=== PATIENT | male | born 1995 | race Caucasian/White ===

== ENCOUNTER 2018-08-04 16:31 | Emergency (ER) | payer BC ==
[2018-08-04 16:39] VITALS: BMI 24.7
[2018-08-04 16:44] VITALS: TEMP 98.8
--- NOTE | 2018-08-04 17:03 | C.PDOC ---
History Of Present Illness <Jen Kothari P - Last Filed: 08/04/18 19:31> <Cory Patel - Last Filed: 08/05/18 00:08> PGY-[address] Patel. 22 year old male with no PMHx presents complaining of left low back pain. Patient states pain began 2 days ago after a gym work out and severely worsened upon awakening today after sleeping on the couch. Pain worsens with movement. Treatment with bengay, cold showers, esteban wrap and epsom salt bath provided no improvement. Patient denies trauma, fever, chills, and urinary symptoms. ( Jen Kothari P) <Jen Kothari - Last Filed: 08/04/18 19:31> <Cory Patel - Last Filed: 08/05/18 00:08> Time Seen by Provider: 08/04/18 16:46 Chief Complaint (Nursing): Back Pain Past Medical History Family History: States: Unknown Family Hx <Jen Kothari - Last Filed: 08/04/18 19:31> - Social History Hx Tobacco Use: No Hx Alcohol Use: No Hx Substance Use: No - Immunization History Hx Tetanus Toxoid Vaccination: No Hx Influenza Vaccination: Yes Hx Pneumococcal Vaccination: No <Cory Patel - Last Filed: 08/05/18 00:08> Vital Signs: Last Vital Signs Temp 98.8 F 08/04/18 16:40 Pulse 98 H 08/04/18 18:31 Resp 18 08/04/18 18:31 BP 111/64 08/04/18 18:31 Pulse Ox 97 08/04/18 19:21 Review Of Systems Constitutional: Negative for: Fever, Chills, Sweats Cardiovascular: Negative for: Chest Pain, Palpitations Respiratory: Negative for: Cough, Shortness of Breath Gastrointestinal: Negative for: Nausea, Vomiting, Abdominal Pain Genitourinary: Negative for: Dysuria, Frequency Musculoskeletal: Positive for: Back Pain (left low back) <Jen Kothari - Last Filed: 08/04/18 19:31> Physical Exam - Physical Exam Appears: In Acute Distress (with severe back pain) Skin: Warm, Diaphoretic Head: Atraumatic, Normacephalic Eye(s): bilateral: Normal Inspection, PERRL Chest: Symmetrical Cardiovascular: Rhythm Regular, No Edema, No Friction Rub, No Murmur Respiratory: Normal Breath Sounds, No Rales, No Rhonchi, No Stridor Gastrointestinal/Abdominal: Bowel Sounds, Soft, No Tenderness Back: No Vertebral Tenderness, Paraspinal Tenderness (T11-L5) Extremity: No Tenderness, No Pedal Edema <KothariSandyJen P - Last Filed: 08/04/18 19:31> ED Course And Treatment Pulse Ox Interpretation: Normal Progress Note: Pain improved from 08/26 to 02/24. Reevaluation Time: 17:20 Reassessment Condition: Improved <Jen Kothari P - Last Filed: 08/04/18 19:31> O2 Sat by Pulse Oximetry: 97 <Coyr Patel - Last Filed: 08/05/18 00:08> Medical Decision Making <Jen Kothari - Last Filed: 08/04/18 19:31> <Cory Patel - Last Filed: 08/05/18 00:08> Medical Decision Making: Plan: UA: negative Flexeril, ketoralac, valium (Jen Kothari) Seen and examined with resident. 22 y/o M p/w L lower back pain, on exam, muscle spasm palpable. UA negative. (Cory Patel) Disposition <SaniyaJen Villanueva - Last Filed: 08/04/18 19:31> - Disposition Disposition Time: 19:19 <Cory Patel - Last Filed: 08/05/18 00:08> - Disposition Referrals: Katharina Petersen MD [Staff Provider] - Disposition: HOME/ ROUTINE Condition: STABLE Prescriptions: Famotidine [Pepcid] 1 tab PO BID #14 tab Ibuprofen [Motrin] 600 mg PO Q6 #25 tab Methocarbamol [Robaxin-750] 1 tab PO Q8H #12 tablet Instructions: Muscle Spasms (DC) Forms: [employer] (Latvian) - Clinical Impression Clinical Impression: Back pain
[2018-08-04] MEDS ORDERED: diaZEpam 10 mg/2 ml Inj IVP ONE (17:59)
[2018-08-04] MEDS ORDERED: diaZEpam 10 mg/2 ml Inj ONE (18:09)
[2018-08-04 18:33] VITALS: BP 111/64; PULSE 98; RESP 18
[2018-08-04 19:12] LABS: URINE BILIRUBIN NEGATIVE (NEGATIVE); URINE BLOOD NEGATIVE (NEGATIVE); URINE CLARITY Clear (Clear); URINE COLOR Yellow (YELLOW); URINE GLUCOSE (UA) NORMAL (Normal); URINE LEUKOCYTE ESTERASE NEG Leu/uL (Negative); URINE PROTEIN NEGATIVE (NEGATIVE); URINE UROBILINOGEN NORMAL mg/dL (0.2-1.0)
[2018-08-04 19:21] VITALS: O2SAT 97
== END 2018-08-04 19:35 | disposition home or self-care (01) ==
LOC: C.ER 16:31
DX: M54.5 Low back pain (principal)
CPT/HCPCS: 81001; 96372; 96374; 99284; J1885; J3360